=== PATIENT | female | born 1995 | race Caucasian/White ===

== ENCOUNTER 2021-01-11 09:14 | Emergency (ER) | payer MEDICAID ==
[2021-01-11 09:32] VITALS: BP 103/77
--- NOTE | 2021-01-11 10:04 | ED Physician Documentation ---
History of Present Illness - Stated complaint Stated Complaint: RASH - Chief complaint Chief Complaint: General - History obtained from History obtained from: Patient - History of Present Illness Timing: How many days ago (2) Pain level max: 0 Pain level now: 0 - Additonal information Additional information: Patient is a 25-year-old female who presents to the emergency department complaining of a rash to her bilateral arms, torso and legs. Started a few days ago. Nothing seems to make it better or worse. No fevers. No chills. Described as itchy. Not painful. Does not recall any new soaps, detergents, medications, foods. Review of Systems Constitutional: denies: Fever, Chills GI: denies: Vomiting, Diarrhea : denies: Now EGA Musculoskeletal: denies: Neck pain, Back pain Neurologic: denies: Headache PD PAST MEDICAL HISTORY - Past Medical History Past Medical History: No - Past Surgical History Past Surgical History: No - Present Medications Home Medications: Ambulatory Orders Medication Instructions Recorded Confirmed predniSONE [Deltasone] 10 mg PO [id number] #[id number] tab 01/11/21 - Allergies Allergies/Adverse Reactions: Allergies Allergy/AdvReac Type Severity Reaction Status Date / Time No Known Drug Allergies Allergy Verified 01/11/21 09:33 - Living Situation Living Arrangement: reports: At home PD ED PE NORMAL - Vitals Vital signs reviewed: Yes - General General: Alert and oriented X 3, No acute distress, Well developed/nourished - HEENT HEENT: PERRL, Moist mucous membranes - Neck Neck: Supple, no meningeal sign - Cardiac Cardiac: RRR, Strong equal pulses - Respiratory Respiratory: No respiratory distress, Clear bilaterally - Abdomen Abdomen: Soft, Non tender, Non distended - Derm Derm: Warm and dry, Other (Small areas of flat erythema to the arms, torso etc. Most are about 1 cm in diameter. No vesicles. No pustules. No scaling) - Extremities Extremities: No edema, No calf tenderness / cord - Neuro Neuro: Alert and oriented X 3 - Psych Psych: Normal mood, Normal affect Results - Vitals Vitals: Vital Signs - 24 hr 01/11/21 09:29 Temperature 36.7 C Heart Rate 68 Respiratory 16 Rate Blood Pressure 103/77 O2 Saturation 99 Oxygen O2 Source Room air PD MEDICAL DECISION MAKING - ED course Complexity details: considered differential, d/w patient ED course: Unclear etiology of the patient's rash. We will trial her on steroids and see how this progresses. Patient is well-appearing, nontoxic. Afebrile. No respiratory distress. Normal phonation. No trismus. Patient counseled regarding signs and symptoms for which I believe and urgent re-evaluation would be necessary. Patient with good understanding of and agreement to plan and is comfortable going home at this time This document was made in part using voice recognition software. While efforts are made to proofread this document, sound alike and grammatical errors may occur. Departure - Departure Disposition: 01 Home, Self Care Clinical Impression: Rash and nonspecific skin eruption Condition: Good Instructions: ED Dermatitis Non Specific Rash Follow-Up: your,doctor in 1 week [Other] Prescriptions: predniSONE [Deltasone] 10 mg PO [id number] #[id number] tab Comments: Take all steroids until gone. Return if you worsen. The cause of your rash is unclear today. Discharge Date/Time: 01/11/21 10:28
== END 2021-01-11 10:28 | disposition home or self-care (01) ==
LOC: ED 09:14
DX: R21 Rash and other nonspecific skin eruption (principal)
CPT/HCPCS: 99282; 99283